=== PATIENT | female | born 1980 | race Caucasian/White ===

== ENCOUNTER 2016-07-07 20:28 | Emergency (ER) | payer SELFPAY ==
[~2016-07-07] VITALS: Ht 154.9 cm; Wt 62.3 kg
[2016-07-07] MEDS ORDERED: SODIUM CHLORIDE 0.9% 1,000ML IVBOLUS ONE (21:00)
[2016-07-07] MEDS ORDERED: SODIUM CHLORIDE FLUSH 10ML SYR IVF ONE (21:00)
[2016-07-07 21:33] LABS: BLOOD UREA NITROGEN 11 mg/dL (7-18)
[2016-07-08 00:23] VITALS: BP 122/64
== END 2016-07-08 00:26 | disposition home or self-care (01) ==
LOC: ED 07-08 00:20
DX: D25.1 Intramural leiomyoma of uterus (principal); N93.8 Other specified abnormal uterine and vaginal bleeding
CPT/HCPCS: 36415; 76830; 80048; 82040; 84703; 85025; 99285

== ENCOUNTER 2017-10-15 08:03 | Emergency (ER) | payer MEDICAID ==
[~2017-10-15] VITALS: Ht 154.9 cm; Wt 63.6 kg
[2017-10-15] MEDS ORDERED: DEXAMETHASONE 4 MG TABLET PO ONE (08:30)
[2017-10-15] MEDS ORDERED: ALBUTEROL/IPRATROPIUM 2.5MG/0.5MG, 3 ML NPPB SCH (08:30)
[2017-10-15] MEDS ORDERED: ALBUTEROL/IPRATROPIUM 2.5MG/0.5MG, 3 ML ONE ×2 (08:31)
[2017-10-15] MEDS ORDERED: DEXAMETHASONE 4 MG TABLET ONE (08:37)
[2017-10-15 09:42] VITALS: BP 106/65
== END 2017-10-15 09:48 | disposition home or self-care (01) ==
LOC: ED 08:52
DX: J45.31 Mild persistent asthma with (acute) exacerbation (principal); F17.200 Nicotine dependence, unspecified, uncomplicated
CPT/HCPCS: 71046; 94640; 99284; J7620

== ENCOUNTER 2018-10-05 03:44 | Emergency (ER) | payer MEDICAID, OTHER ==
[~2018-10-05] VITALS: Ht 154.9 cm; Wt 68.9 kg
[2018-10-05 05:19] VITALS: BP 123/68
== END 2018-10-05 05:25 | disposition home or self-care (01) ==
LOC: ED 05:22
DX: J45.41 Moderate persistent asthma with (acute) exacerbation (principal)
CPT/HCPCS: 71045; 93005; 94640; 99283; J7512; J7620

== ENCOUNTER 2019-02-16 22:06 | Emergency (ER) | payer MEDICAID ==
[~2019-02-16] VITALS: Ht 154.9 cm; Wt 61.3 kg
[2019-02-16] MEDS ORDERED: DEXAMETHASONE 4 MG TABLET PO STA (23:27)
--- NOTE | 2019-02-16 23:30 | NUR ---
WATER PROVIDED. PT SITTING UP IN BED. NO OTHER NEEDS AT THIS TIME.
[2019-02-16] MEDS ORDERED: DEXAMETHASONE 4 MG TABLET ONE (23:36)
[2019-02-16 23:44] VITALS: BP 116/71
== END 2019-02-16 23:46 | disposition home or self-care (01) ==
LOC: ED 22:58
DX: J20.8 Acute bronchitis due to other specified organisms (principal); J45.909 Unspecified asthma, uncomplicated; J02.8 Acute pharyngitis due to other specified organisms; F17.210 Nicotine dependence, cigarettes, uncomplicated; B97.89 Other viral agents as the cause of diseases classified elsewhere
CPT/HCPCS: 71046; 99283

== ENCOUNTER 2019-08-11 19:59 | Emergency (ER) | payer MEDICAID ==
[~2019-08-11] VITALS: Ht 154.9 cm; Wt 71.3 kg
[2019-08-11 20:10] VITALS: BP 136/78
[2019-08-11] MEDS ORDERED: AZITHROMYCIN 500 MG TABLET PO ONE (20:30)
[2019-08-11] MEDS ORDERED: CEFTRIAXONE 250 MG IM ONE (20:30)
[2019-08-11] MEDS ORDERED: AZITHROMYCIN 250 MG TABLET ONE (20:31)
[2019-08-11] MEDS ORDERED: CEFTRIAXONE 250 MG ONE (20:31)
[2019-08-11] MEDS ORDERED: LIDOCAINE-MPF 1%, 5ML ONE (20:32)
--- NOTE | 2019-08-11 20:40 | NUR ---
MEDS ADMIN PER APR.
== END 2019-08-11 21:11 | disposition home or self-care (01) ==
LOC: ED 21:02
DX: J02.8 Acute pharyngitis due to other specified organisms (principal); B97.89 Other viral agents as the cause of diseases classified elsewhere; H10.022 Other mucopurulent conjunctivitis, left eye; A54.9 Gonococcal infection, unspecified; R49.0 Dysphonia; J45.909 Unspecified asthma, uncomplicated
CPT/HCPCS: 87081; 87880; 96372; 99283; J0696

== ENCOUNTER 2019-08-18 12:17 | Emergency (ER) | payer MEDICAID ==
[~2019-08-18] VITALS: Ht 154.9 cm; Wt 72.6 kg
[2019-08-18 12:23] VITALS: BP 162/93
--- NOTE | 2019-08-18 13:26 | NUR ---
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 AMINTA
[2019-08-18] MEDS ORDERED: FLUORESCEIN OPHTHALMIC 1 MG STRIP ONE (13:29)
--- NOTE | 2019-08-18 13:32 | NUR ---
PT WITH C/O RIGHT EYE AND LEFT EYE REDNESS AND IRRITATION, STATES "IT FEEL LIKE SOMETHING IS IN MY EYE BUT THERE ISNT" PT WITH SLIGHT DRAINAGE NOTED TO BILATERAL EYES, PT STATES HER PREVIOUS BOSS IS AN OPTOMOTRIST AND CALLED HER IN A SCRIPT FOR TOPRAMAX PT STATES SHE HAS BEEN TAKING THIS MEDICATION SINCE TUESDAY WITH NO RELIEF.
== END 2019-08-18 14:17 | disposition home or self-care (01) ==
LOC: ED 13:50
DX: S05.02XA Injury of conjunctiva and corneal abrasion without foreign body, left eye, initial encounter (principal); H10.13 Acute atopic conjunctivitis, bilateral; J02.9 Acute pharyngitis, unspecified; J45.909 Unspecified asthma, uncomplicated; X58.XXXA Exposure to other specified factors, initial encounter; Y93.89 Activity, other specified; Y92.89 Other specified places as the place of occurrence of the external cause; Y99.8 Other external cause status
CPT/HCPCS: 99283